=== PATIENT | female | born 1955 | race African-American/Black ===

== ENCOUNTER 2021-11-20 07:00 | Inpatient (IN) | payer MEDICARE ==
[~2021-11-20] VITALS: Ht 157.5 cm; Wt 89.3 kg
[2021-11-20 07:00] VITALS: BP 142/63
--- NOTE | 2021-11-20 07:08 | NUR ---
ADMISSION PT ARRIVES VIA EMS FROM [facility] ER. SETTLED INTO BED, ON 2L/NC. CARDIZEM GTT RUNNING ON ARRIVAL. VS ASSESSED, TELE APPLIED.
[2021-11-20] MEDS ORDERED: VENTOLIN HFA18 GM INH (09:26)
[2021-11-20] MEDS ORDERED: HYDR-2769 PO (09:26)
[2021-11-20] MEDS ORDERED: TIZA-75 PO (09:26)
[2021-11-20] MEDS ORDERED: METO25TA4 PO (09:26)
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
[2021-11-20] MEDS ORDERED: oxyCODONE/APAP 5/325 1 TAB TABLET PO PRN (10:00)
[2021-11-20] MEDS: tiZANidine 4 MG TABLET. PO SCH ×3 (10:31→20:51)
[2021-11-20] MEDS: METOPROLOL TART IMMED RELEASE 25 MG TABLET. PO SCH ×2 (10:31→20:52)
--- NOTE | 2021-11-20 10:33 | NUR ---
MEDICATION CARDIZEM GTT STOPPED AT THIS TIME WITH ADMINISTRATION OF PO CARDIZEM. DID NOT APPEAR ON IV SPREADSHEET IT ARRIVED ON PT FROM [facility] ER.
[2021-11-20] MEDS: oxyCODONE/APAP 10/325 1 TAB TABLET PO PRN ×2 (10:39→19:57)
[2021-11-20 10:42] LABS: HEMATOCRIT 43.6 % (36.0-47.0); HEMOGLOBIN 13.7 g/dL (12.0-15.5); RED BLOOD COUNT 5.2 x10^6/uL (3.50-5.40); RED CELL DISTRIBUTION WIDTH 15.7 % (11.5-14.5); WHITE BLOOD COUNT 8.6 x10^3/uL (4.0-11.0)
[2021-11-20 11:00] VITALS: BP 134/67
[2021-11-20 11:12] LABS: ALBUMIN 3.5 g/dL (3.4-5.0); GFR 67.5; MAGNESIUM 1.8 mg/dL (1.8-2.4); POTASSIUM 4.7 mmol/L (3.5-5.1); TOTAL BILIRUBIN 0.4 mg/dL (0.2-1.0)
--- NOTE | 2021-11-20 11:47 | RAD ---
EXAMINATION: XR CHEST 1V CLINICAL HISTORY: CHF. TECHNIQUE: XR CHEST 1V COMPARISON: 11/20/2021 4:49 AM FINDINGS/ IMPRESSION: No definitive evidence of acute cardiopulmonary abnormality or significant interval change when accou nting for differences in patient positioning and imaging technique. Redemonstration of cardiomegaly and nonspecific interstitial prominence. Electronically signed by: Lester Huang DO (11/20/2021 11:44 AM) [id number]
--- NOTE | 2021-11-20 12:01 | EKG ---
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
[2021-11-20] MEDS ORDERED: IV NORMAL SALINE 1000ML BAG 1,000 ML IV ONE (12:15)
[2021-11-20] MEDS ORDERED: ASPIRIN ENTERIC COATED 325 MG TABLET.DR. PO ONE (12:15)
--- NOTE | 2021-11-20 12:23 | PDOC2 ---
RADHA HOBSON PRINT SHOP ASSISTANT 11/20/21 1223: CARDIAC CONSULT DATE OF CONSULT Date of Consult DATE: 11/20/21 TIME: 11:37 REASON FOR CONSULT Reason for Consult: SVT REFERRING PHYSICIAN Referring Physician: Norberto SOURCE Source: Chart review, Patient HISTORY OF PRESENT ILLNESS HISTORY OF PRESENT ILLNESS This is a pleasant 66 yo female admitted for complains of chest pain. Reports that she has been having BERNABE and chest tightness intermittently in the last 1-2 weeks. No nausea or vomiting. No frequent dizziness. No fever or chills. No prior exposure to covid-19. Verbalized compliance with her medications. She sees Leann Rodriguez APRN cardiology at [facility]. she was initially admitted at [facility] and and then noted with AFIB RVR and she has converted to SR/SB. No hx of CAD, VTE. No hx fo BRENT. She has not had stress test since her 2018 septal myomectomy. No leg swelling, PND. or orthopnea. PAST MEDICAL HISTORY Cardiovascular: AFIB (post heart surgery in 2018), HTN, Hyperlipidemia Pulmonary: COPD CENTRAL NERVOUS SYSTEM: Other (No pertinent history) GI: No pertinent hx Heme/Onc: No pertinent hx Hepatobiliary: No pertinent hx Psych: No pertinent hx Musculoskeletal: low back pain, Osteoarthritis Rheumatologic: No pertinent hx Infectious disease: No pertinent hx ENT: No pertinent hx Renal/: No pertinent hx Endocrine: No pertinent hx Dermatology: No pertinent hx PAST SURGICAL HISTORY Past Surgical History: CABG (septal myomectomy in 06/2018) FAMILY HISTORY Family History: Hypertension SOCIAL HISTORY Smoke: No ALCOHOL: none Drugs: None Lives: Alone CURRENT MEDICATIONS CURRENT MEDICATIONS Current Medications Medications (Trade) Dose Ordered Sig/Leonie Route PRN Reason Start Time Stop Time Status Last Admin Dose Admin Metoprolol Tartrate (Lopressor) 25 mg BID PO 11/20/21 10:00 11/20/21 10:31 Tizanidine HCl (Zanaflex) 2 mg TID PO 11/20/21 10:00 11/20/21 10:31 Oxycodone/ Acetaminophen (Percocet 10/325) 1 tab PRN Q4HRS PRN PO SEVERE PAIN 11/20/21 10:00 11/20/21 10:39 Diltiazem HCl (Cardizem 24hr Cd) 180 mg DAILY PO 11/20/21 10:00 11/20/21 10:31 ALLERGIES ALLERGIES: Coded Allergies: cyclobenzaprine (Verified Allergy, Intermediate, 11/20/21) ROS Review of System 14 point ROS evaluated with pertinent positives noted per HPI PHYSICAL EXAM General: Alert, Oriented X3, Cooperative, No acute distress HEENT: Atraumatic, Mucous membr. moist/pink Heart: Regular rate (SR/SB), Other (distant heart sounds) Abdomen: Soft, No tenderness Extremities: No cyanosis, No edema Skin: No breakdown, No significant lesion Neuro: Normal speech, Sensation intact Psych/Mental Status: Mental status NL, Mood NL MUSCULOSKELETAL: Osteoarthritic changes both hands VITALS/I&O VITALS/I&O: Vital Signs Date Time Temp Pulse Resp B/P (MAP) Pulse Ox O2 Delivery O2 Flow Rate FiO2 11/20/21 11:09 16 Room Air 11/20/21 10:31 66 142/63 11/20/21 07:00 98.0 98.0 LABS Lab: Laboratory Tests Test 11/20/21 10:21 White Blood Count 8.6 x10^3/uL (4.0-11.0) Red Blood Count 5.20 x10^6/uL (3.50-5.40) Hemoglobin 13.7 g/dL (12.0-15.5) Hematocrit 43.6 % (36.0-47.0) Mean Corpuscular Volume 84 fL (79-100) Mean Corpuscular Hemoglobin 26 pg (25-35) Mean Corpuscular Hemoglobin Concent 31 g/dL (31-37) Red Cell Distribution Width 15.7 % (11.5-14.5) H Platelet Count 192 x10^3/uL (140-400) Sodium Level 140 mmol/L (136-145) Potassium Level 4.7 mmol/L (3.5-5.1) Chloride Level 108 mmol/L (98-107) H Carbon Dioxide Level 24 mmol/L (21-32) Anion Gap 8 (6-14) Blood Urea Nitrogen 13 mg/dL (7-20) Creatinine 1.0 mg/dL (0.6-1.0) Estimated GFR (Cockcroft-Gault) 67.5 BUN/Creatinine Ratio 13 (6-20) Glucose Level 101 mg/dL (70-99) H Calcium Level 9.0 mg/dL (8.5-10.1) Magnesium Level 1.8 mg/dL (1.8-2.4) Total Bilirubin 0.4 mg/dL (0.2-1.0) Aspartate Amino Transferase (AST) 45 U/L (15-37) H Alanine Aminotransferase (ALT) 24 U/L (14-59) Alkaline Phosphatase 82 U/L (46-116) Troponin I High Sensitivity 6915 ng/L (4-50) H IL-Ahg-O-Type Natriuretic Peptide 34382 pg/mL (0-124) H Total Protein 7.0 g/dL (6.4-8.2) Albumin 3.5 g/dL (3.4-5.0) Albumin/Globulin Ratio 1.0 (1.0-1.7) Laboratory Tests 11/20/21 10:21 Laboratory Tests 11/20/21 10:21 ASSESSMENT/PLAN ASSESSMENT/PLAN 1. NSTEMI 2. Hx of HOCM with septal myomectomy: no bypass 3. HTN: controlled 4. HLP 5. Obesity 6,. AFIB RVR: converted to SR. Presently SB lowest mid40s no pauses 7. Acute diastolic CHF: appears compensated Recommendations 1. LHC, risks and benefits discussed and agreeable to proceed 2. FLP, TTE 3. Already received cardizem CD 180 mg and metoprolol. Monitor rhythm for significant bradycardia 4. Secondary prevention measures per LHC result. ASA. NOAC consideration after LHC 5. MCOT 6. Lasix PRN JOYCE WYMAN MD 11/20/21 5877: CARDIAC CONSULT ASSESSMENT/PLAN ASSESSMENT/PLAN Patient seen and examined. Agree with PCU RN's assessment and plan. Agree with cardiac catheterization today to further evaluate patient's non-STEMI HOCM s/p septal myectomy, clinically stable Atrial fibrillation with RVR, presently back in sinus pericardia Start amiodarone for antiarrhythmic therapy and Eliquis for stroke prophylaxis Acute diastolic heart failure better compensated Thank you for your consultation RADHA HOBSON APRN Nov 20, 2021 12:23 JOYCE WYMAN MD Nov 20, 2021 16:47
[2021-11-20 12:52] LABS: CHOLESTEROL/HDL RATIO 5.3
[2021-11-20] MEDS ORDERED: IODIXANOL 320 MG/ML 100 ML VIAL. ONE (12:55)
[2021-11-20] MEDS ORDERED: LIDOCAINE 1% PF 2 ML VIAL. ONE (12:55)
[2021-11-20] MEDS ORDERED: fentaNYL PF VIAL 100 MCG/2 ML VIAL ONE (13:06)
[2021-11-20] MEDS ORDERED: MIDAZOLAM HCL/PF 2 MG/2 ML VIAL. ONE (13:06)
[2021-11-20] MEDS ORDERED: VERAPAMIL 5 MG/2 ML VIAL. ONE (13:06)
[2021-11-20] MEDS ORDERED: NITROGLYCERIN 200 MCG/2 ML SYRINGE FOR CATH/VASC LAB. ONE (13:06)
[2021-11-20] MEDS ORDERED: HEPARIN for IV BOLUS 10,000 UNIT/10 ML VIAL. ONE (13:06)
[2021-11-20] MEDS ORDERED: NITROGLYCERIN 200 MCG/2 ML SYRINGE FOR CATH/VASC LAB. IART ONE (13:45)
[2021-11-20] MEDS ORDERED: LIDOCAINE 1% PF 2 ML VIAL. INJ ONE (13:45)
[2021-11-20] MEDS ORDERED: fentaNYL PF VIAL 100 MCG/2 ML VIAL IV ONE (13:45)
[2021-11-20] MEDS ORDERED: VERAPAMIL 5 MG/2 ML VIAL. IART ONE (13:45)
[2021-11-20] MEDS ORDERED: HEPARIN for IV BOLUS 10,000 UNIT/10 ML VIAL. IART ONE (13:45)
[2021-11-20] MEDS ORDERED: MIDAZOLAM HCL/PF 2 MG/2 ML VIAL. IV ONE (13:45)
[2021-11-20] MEDS ORDERED: IODIXANOL 320 MG/ML 100 ML VIAL. IART ONE (13:45)
[2021-11-20 13:48] VITALS: BP 138/81
[2021-11-20] MEDS ORDERED: CONTRAST GIVEN. MC PRN (14:00)
--- NOTE | 2021-11-20 14:22 | PDOC ---
MODERATE SEDATION ASSESSMENT RISKS/ALTERNATIVES Risks/Alternatives Risks and alternatives of this type of sedation and procedure discussed with: RISK/ALTERNATIVES: Patient H & P ON CHART H & P H & P on chart and reviewed for co-morbid conditions and appropriate labs. H&P ON CHART: Yes STATUS PREG STATUS ASSESSED: N/A MEDS/ALLERGIES REVIEWED Meds/Allergies Reviewed Medications and Allergies including time and route of recently administered narcotics and sedatives. MEDS/ALLERGIES REVIEWED: Yes ASA RATING ASA RATING: II AIRWAY ASSESSMENT Airway Assessment Airway patency, oral function limitations, presence of caps, crowns, dentures, partials, and ability to extend neck assessed. AIRWAY ASSESSMENT: Yes MALLAMPATI SCORE MALLAMPATI SCORE: II PRE-SEDATION ASSESSMENT PRE-SEDATION ASSESSMENT: Yes JOYCE WYMAN MD Nov 20, 2021 14:22
--- NOTE | 2021-11-20 14:27 | CARD ---
MR#: [id number] Date of Study: 11/20/2021 Ordering Physician: RADHA HOBSON, Referring Physician: RADHA HOBSON, Tech: RT Emily(R) APPROVED REPORT Technologist: Joana Daigle RT(R) Nurse: Bharati Kelly RN Procedure(s) performed: Left heart catheterization, selective coronary angiography and left ventricul ography via right transradial approach fluoro time: 3.4min dose: 57.3 gycm2 contrast: 91cc moderate sedation: 23min INDICATION The indication(s) include : non-STEMI . [facility] Clinical Frailty Scale [facility] Clinical Frailty Scale: Mildly Frail Heart Failure Heart Failure: No CASE TECHNIQUE IV conscious sedation was used throughout procedure with appropriate monitoring and was performed in the presence of a registered nurse who was an independent trained observer other than the physician p erforming the procedure. During this case, Fluoroscopy and low osmolar contrast were used for imaging . Specimen(s) Removed: No Estimated Blood loss: 15 cc's. PROCEDURE NARRATIVE After explaining the risks, benefits and alternative options, informed consent was obtained from juan david ent. Patient was brought to the cardiac Auto Crane Driver and right wrist was prepped and draped in the usual fashion after confirming a positive modified Skip's test. Arterial access was obtained in the righ t radial artery and a 6 Slovak sheath was inserted. 6 Slovak Aaron catheter was used to perform stu ective angiography of the left and right coronary arteries. 6 Slovak pigtail catheter was used to pe rform left ventriculography. Patient tolerated the procedure well. Hemostasis was achieved using TR band. There were no immediate complications. The following findings were noted. FINDINGS 1. Hemodynamics: Left ventricular end-diastolic pressure of 25 mmHg. No pullback gradient across th e aortic valve. 2. Left ventriculography: Hyperdynamic left ventricle systolic function with ejection fraction estim ated at greater than 75%. No significant mitral regurgitation seen. 3. Coronary angiography: a. The left main coronary artery arose from the left sinus of Valsalva, gave rise to the left anteri or descending and left circumflex arteries and did not show any significant stenosis. b. The left anterior descending artery did not show any significant stenosis. c. The left circumflex artery did not show any significant stenosis. d. The right coronary artery was a large and dominant vessel arising from the right sinus of Valsalv a that did not show any significant stenosis. Conclusion 1. No significant coronary artery disease 2. Hyperdynamic left ventricle systolic function with ejection fraction estimated at greater than 75 % Recommendations Patient's non-STEMI is most probably type II/demand ischemia. Recommend medical therapy. Signed by : Les Gupta, Electronically Approved : 11/20/2021 14:26:44
[2021-11-20] MEDS ORDERED: IV 1/2 NORMAL SALINE 1,000 ML IV SCH (14:30)
[2021-11-20 15:00] VITALS: BP 130/71
[2021-11-20] MEDS ORDERED: NON FORMULARY ITEM (Albuterol Sulfate (Ventolin Hfa Inhaler) 2 PUFF) INH SCH (16:15)
[2021-11-20] MEDS: ALBUTEROL SULFATE 2.5 MG/3 ML NEBU. NEB PRN (16:27)
[2021-11-20] MEDS: AMIODARONE HCL 200 MG TABLET. PO SCH ×2 (17:38→20:51)
[2021-11-20 19:24] VITALS: BP 144/78
--- NOTE | 2021-11-20 19:45 | NUR ---
Pt in bed assessment completed vss poc explained pt c/o pain to lower back will medicate pt will resume care and continue to monitor pt.Call light in reach
[2021-11-20] MEDS ORDERED: ATORVASTATIN CALCIUM 20 MG TABLET PO SCH (21:00)
[2021-11-20 22:55] VITALS: BP 134/75
[2021-11-21 02:43] VITALS: BP 129/75
[2021-11-21 07:00] VITALS: BP 144/63
[2021-11-21] MEDS ORDERED: ASPIRIN ENTERIC COATED 81 MG TABLET.DR. PO SCH (08:00)
[2021-11-21] MEDS: tiZANidine 4 MG TABLET. PO SCH (08:09)
[2021-11-21] MEDS: METOPROLOL TART IMMED RELEASE 25 MG TABLET. PO SCH (08:09)
[2021-11-21] MEDS: AMIODARONE HCL 200 MG TABLET. PO SCH (08:09)
[2021-11-21] MEDS ORDERED: APIXABAN 5 MG TABLET. PO SCH (09:00)
[2021-11-21] MEDS: oxyCODONE/APAP 10/325 1 TAB TABLET PO PRN (10:18)
[2021-11-21] MEDS ORDERED: PERFLUTREN PROTEIN-A MICROSPHR 0.22 MG/ML 3 ML VIAL. IV ONE ×2 (10:45→10:52)
[2021-11-21 10:58] VITALS: BP 115/56
--- NOTE | 2021-11-21 12:00 | PDOC ---
JOCERADHA FIELD ARTILLERY BASIC 11/21/21 1200: CARDIO Progress Notes Date and Time Date of Service 11/21/2021 Time of Evaluation 1130 Subjective Subjective: No Chest Pain, No shortness of breath, No Palpitations Vitals Vitals Vital Signs Date Time Temp Pulse Resp B/P (MAP) Pulse Ox O2 Delivery O2 Flow Rate FiO2 11/21/21 10:58 97.4 49 19 115/56 (75) 97 Room Air 97.4 11/21/21 08:15 2.0 Weight Weight [ ] Input and Output Intake and Output Intake and Output 11/21/21 07:00 Intake Total 520 ml Balance 520 ml Intake Oral 520 ml # Voids 2 Physical Exam HEENT: Neck Supple W Full Motion Chest: Symmetric LUNGS: Other (diffuse wheeze) Heart: S1S2, RRR (SR) Abdomen: Soft N/T Extremities: No Calf Tenderness Neurology: alert, oriented, follow commands Assessment Assessment 1. NSTEMI: LHC revealed no significant CAD. elevation likely due to RVR 2. Hx of HOCM with septal myomectomy: no bypass. EF 75% per LHC 3. HTN: controlled 4. HLP 5. Obesity 6,.AFIB RVR: converted to SR. Maintaining SR/SB lowest mid40s no pauses 7. Acute diastolic CHF: appears compensated 8. Asthma: presently with diffuse wheeze. per PCP Recommendations 1. eliquis fo stroke prevention. Continue amiodarone 200 mg bid for 2 weeks then daiily 2. If TTE could not be done as an intpt then this can be [facility] as an outpt via [facility]. Follow up with Malina Rodriguez at cardiology 3. Continue toprol 4. MCOT Justicifation of Admission Dx: Justifications for Admission: Justification of Admission Dx: Yes JOYCE WYMAN MD 11/21/212101: CARDIO Progress Notes Assessment Assessment Patient seen and examined. Agree with APARTMENT MANAGER's assessment and plan. NSTEMI prob type 2/demand ischemia - cardiac cath did not show any significant CAD HOCM s/p septal myectomy, clinically stable Atrial fibrillation with RVR, presently back in sinus pericardia Continue amiodarone for antiarrhythmic therapy and Eliquis for stroke prophylaxis 2D echo showed hyperdynamic LVF with EF > 75% and diastolic dysfunction Acute diastolic heart failure better compensated Continue current medical regimen RADHA HOBSON APRN Nov 21, 2021 12:00 JOYCE WYMAN MD Nov 21, 2021 21:02
[2021-11-21] MEDS: ALBUTEROL SULFATE 2.5 MG/3 ML NEBU. NEB PRN (12:10)
[2021-11-21] MEDS ORDERED: ATOR20TA58 PO (12:15)
[2021-11-21] MEDS ORDERED: APIX5TAB PO (12:15)
[2021-11-21] MEDS ORDERED: AMIO200T53 PO ×2 (12:17)
--- NOTE | 2021-11-21 12:22 | PDOC3 ---
Discharge Summary Visit Information Date of Admission: Nov 20, 2021 Date of Discharge: Nov 21, 2021 Final Diagnosis 1. NSTEMI type 2 demand, [facility] revealed no significant CAD 2. Hx of HOCM with septal myomectomy: no bypass. EF 75% per [facility], chronic diastolic CHF 3. hypertension and hyperlidids 4. acute on chronic diastolic CHF, .AFIB RVR: converted to SR. 5. Asthma: presently with diffuse wheeze. per PCP Brief Hospital Course Allergies Allergies Coded Allergies Type Severity Reaction Last Updated Verified cyclobenzaprine Allergy Intermediate 11/20/21 Yes Vital Signs Vital Signs Date Time Temp Pulse Resp B/P (MAP) Pulse Ox O2 Delivery O2 Flow Rate FiO2 11/21/21 12:10 96 Room Air 11/21/21 10:58 97.4 49 19 115/56 (75) 97.4 11/21/21 08:15 2.0 Lab Results Laboratory Tests Test 11/20/21 10:21 White Blood Count 8.6 x10^3/uL (4.0-11.0) Red Blood Count 5.20 x10^6/uL (3.50-5.40) Hemoglobin 13.7 g/dL (12.0-15.5) Hematocrit 43.6 % (36.0-47.0) Mean Corpuscular Volume 84 fL (79-100) Mean Corpuscular Hemoglobin 26 pg (25-35) Mean Corpuscular Hemoglobin Concent 31 g/dL (31-37) Red Cell Distribution Width 15.7 % (11.5-14.5) Platelet Count 192 x10^3/uL (140-400) Sodium Level 140 mmol/L (136-145) Potassium Level 4.7 mmol/L (3.5-5.1) Chloride Level 108 mmol/L (98-107) Carbon Dioxide Level 24 mmol/L (21-32) Anion Gap 8 (6-14) Blood Urea Nitrogen 13 mg/dL (7-20) Creatinine 1.0 mg/dL (0.6-1.0) Estimated GFR (Cockcroft-Gault) 67.5 BUN/Creatinine Ratio 13 (6-20) Glucose Level 101 mg/dL (70-99) Calcium Level 9.0 mg/dL (8.5-10.1) Magnesium Level 1.8 mg/dL (1.8-2.4) Total Bilirubin 0.4 mg/dL (0.2-1.0) Aspartate Amino Transf (AST/SGOT) 45 U/L (15-37) Alanine Aminotransferase (ALT/SGPT) 24 U/L (14-59) Alkaline Phosphatase 82 U/L (46-116) Troponin I High Sensitivity 6915 ng/L (4-50) ZT-Hcg-G-Type Natriuretic Peptide 19512 pg/mL (0-124) Total Protein 7.0 g/dL (6.4-8.2) Albumin 3.5 g/dL (3.4-5.0) Albumin/Globulin Ratio 1.0 (1.0-1.7) Triglycerides Level 126 mg/dL (0-150) Cholesterol Level 248 mg/dL (0-200) LDL Cholesterol, Calculated 176 mg/dL (0-100) VLDL Cholesterol, Calculated 25 mg/dL (0-40) Non-HDL Cholesterol Calculated 201 mg/dL (0-129) HDL Cholesterol 47 mg/dL (40-60) Cholesterol/HDL Ratio 5.3 Thyroid Stimulating Hormone (TSH) 1.146 uIU/mL (0.358-3.74) Brief Hospital Course Ms. Moore is a 66 old female, transfer from [facility], SVT rhythm, went to ER for acute chest pain. NOted BERNABE and chest tightness intermittently 2 weeks. She sees Leann Rodriguez APRN cardiology at [facility]. Heree, troponin bump, noted with AFIB RVR and she has converted to SR/SB. No hx of CAD HX cardiac surg, 2018 septal myomectomy. Assessment Assessment CARDIAC CATH 11/20/21 Conclusion 1. No significant coronary artery disease 2. Hyperdynamic left ventricle systolic function with ejection fraction estimated at greater than 75% Recommendations Patient's non-STEMI is most probably type II/demand ischemia. Recommend medical therapy. Discharge Information Condition at Discharge: Improved Follow Up: Weeks Disposition/Orders: D/C to Home Scheduled Albuterol Sulfate (Ventolin Hfa Inhaler) 18 Gm Hfa.aer.ad, 2 PUFF INH PRN Q4HRS for ASTHMA, Ref 0 (Reported) Entered as Reported by: THEO CHAMBERLAIN on 11/20/2172 Last Taken: Unknown Dose on Unknown Date & Time Last Action: Converted on 11/20/21 1610 by THEO CHAMBERLAIN Amiodarone Hcl (Amiodarone Hcl) 200 Mg Tablet, 200 MG PO BID for cardiac rhythm, #30 two weeks BID then start daily Prescribed by: ADEEL THURMAN on 11/21/21 1217 Amiodarone Hcl (Amiodarone Hcl) 200 Mg Tablet, 1 TAB PO DAILY for cardiac, #30 Ref 1 Prescribed by: ADEEL THURMAN on 11/21/21 1217 Apixaban (Eliquis) 5 Mg Tablet, 5 MG PO BID for atrial fib, #60 Ref 1 Prescribed by: ADEEL THURMAN on 11/21/21 1215 Atorvastatin Calcium (Atorvastatin Calcium) 20 Mg Tablet, 20 MG PO QHS for cardiac, #30 Prescribed by: ADEEL THURMAN on 11/21/21 1215 Metoprolol Tartrate (Metoprolol Tartrate) 25 Mg Tablet, 1 TAB PO BID for HTN, #180 Ref 1 (Reported) Entered as Reported by: THEO CHAMBERLAIN on 11/20/21925 Last Taken: Unknown Dose on 11/19/211999 Last Action: Continued on 11/20/21947 by ADEEL THURMAN Tizanidine Hcl (Tizanidine Hcl) 4 Mg Tablet, 2 MG PO TID for CHRONIC BACK PAIN, (Reported) Entered as Reported by: THEO CHAMBERLAIN on 11/20/21925 Last Taken: Unknown Dose on 11/19/211999 Last Action: Continued on 11/20/21947 by ADEEL THURMAN Discontinued Medications Hydrocodone Bit/Acetaminophen (Hydrocodone-Apap 10-325 ) 1 Tab Tablet, 1 TAB PO PRN Q6HRS PRN for PAIN, Ref 0 (Reported) Entered as Reported by: THEO CHAMBERLAIN on 11/20/21925 Last Taken: Unknown Dose on Unknown Date & Time Last Action: New Order on 11/20/21925 by THEO CHAMBERLAIN Patient Instructions Patient Instructions vickie shay stroke prevention. Continue amiodarone 200 mg bid for 2 weeks then daiily Follow up with Malina Rodriguez at cardiology Justicifation of Admission Dx: Justifications for Admission: Justification of Admission Dx: Yes ADEEL THURMAN MD Nov 21, 2021 12:22
[2021-11-21] MEDS ORDERED: ALBU0.63 NEB (13:28)
--- NOTE | 2021-11-21 14:51 | NUR ---
SS following for discharge planning. SS reviewed pt chart and discussed with pt RN. Pt is from home and is currently on room air. Cardiology following. Pt had heart cath on 11/20/2021. Discharge order on the chart for home with self care.
--- NOTE | 2021-11-21 15:01 | NUR ---
DISCHARGE PIV'S ET TELE DISCONTINUED. MEDICATIONS REVIEWED WITH PATIENT, FOLLOW UP INFORMATION WITH PERSONAL ALIGNMENT SPECIALIST DISCUSSED WELL. ALL QUESTIONS ANSWERED TO PATIENT SATISFACTION. AMBULATED TO MAIN ENTRANCE WITH DAUGHTER FOR DC HOME IN PRIVATE VEHICLE.
--- NOTE | 2021-11-21 16:34 | CARD ---
MR#: [id number] Date of Study: 11/21/2021 Ordering Physician: RADHA HOBSON, Referring Physician: RADHA HOBSON Tech: Ron Langford [facility] APPROVED REPORT EXAM: Two-dimensional and M-mode echocardiogram with Doppler and color Doppler. 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 RISK FACTORS Hypertension Obesity Hyperlipidemia 2D DIMENSIONS Left Atrium(2D)5.5 (1.6-4.0cm)IVSd2.2 (0.7-1.1cm) Aortic Root(2D)3.1 (2.0-3.7cm)LVDd3.9 (3.9-5.9cm) LVOT Diameter1.9 (1.8-2.4cm)PWd2.2 (0.7-1.1cm) LVDs1.8 (2.5-4.0cm)FS (%) 54.4 % SV55.9 mlLVEF(%)85.8 (>50%) Aortic Valve AoV Peak Jorge.182.1cm/sAoV VTI30.0cm AO Peak GR.13.3mmHgLVOT Peak Jorge.123.9cm/s LVOT VTI 21.14cmAO Mean GR.7mmHg TAZ (VMAX)1.90fu3MVH (VTI)2.06cm2 Mitral Valve MV E Kxnhhtxa470.3cm/sMV DECEL [id number] MV A Bcsnawci45.7cm/sMV CUF89lh E/A Ratio2.0MVA (PHT)2.23cm2 TDI E/Medial E'45.3 Pulmonary Valve PV Peak Ucrmkmgs65.7cm/sPV Peak Grad.3mmHg Tricuspid Valve TR P. Koblctrx272zm/sTR Peak Gr.31mmHg Pulmonary Vein S1 Sddgmhny87.4cm/sD2 Xsidngeo02.1cm/s LEFT VENTRICLE The left ventricle is normal size. There is moderate to severe concentric left ventricular hypertroph y. Hyperdynamic left ventricular systolic function. The ejection fraction is greater than 75%. There is normal LV segmental wall motion. Transmitral Doppler flow pattern is Grade III-reversible restrict hamzah diastolic dysfunction. No left ventricle thrombus noted on this study. There is no ventricular se ptal defect visualized. There is no left ventricular aneurysm. There is no mass noted in the left ana tricle. RIGHT VENTRICLE The right ventricle is normal size. There is normal right ventricular wall thickness. The right ventr icular systolic function is normal. ATRIA The left atrium is moderately dilated. The right atrium size is normal. The interatrial septum is int act with no evidence for an atrial septal defect or patent foramen ovale as noted on 2-D or Doppler i maging. AORTIC VALVE The aortic valve is calcified but opens well. Doppler and Color Flow revealed no significant aortic r egurgitation. There is no significant aortic valvular stenosis. There is no aortic valvular vegetatio n. MITRAL VALVE The mitral valve is calcified and displays mild Mitral annular calcification is moderate.decreased op ening. There is no evidence of mitral valve prolapse. There is no mitral valve stenosis. Doppler and Color-flow revealed trace mitral regurgitation. TRICUSPID VALVE The tricuspid valve is normal in structure and function. Doppler and Color Flow revealed no tricuspid valve regurgitation noted. There is no tricuspid valve prolapse or vegetation. There is no tricuspid valve stenosis. PULMONIC VALVE The pulmonary valve is normal in structure and function. Doppler and Color Flow revealed no pulmonic valvular regurgitation. There is no pulmonic valvular stenosis. GREAT VESSELS The aortic root is normal in size. The ascending aorta is normal in size. The pulmonary artery is nor mal. The IVC is normal in size and collapses >50% with inspiration. PERICARDIAL EFFUSION There is no pleural effusion. There is no evidence of significant pericardial effusion. Critical Notification Critical Value: No <Conclusion> Hyperdynamic left ventricular systolic function. The ejection fraction is greater than 75%. There is normal LV segmental wall motion. Transmitral Doppler flow pattern is Grade III-reversible restrictive diastolic dysfunction. There is no evidence of significant pericardial effusion. Signed by : Les Gupta, Electronically Approved : 11/21/2021 16:33:42
== END 2021-11-21 14:45 | disposition home or self-care (01) | DRG 280 ==
LOC: 6 SOUTH 07:00
PROVIDERS: ADMIT Internal Medicine; ATTEND Internal Medicine
PROC: B2111ZZ Fluoroscopy of Multiple Coronary Arteries using Low Osmolar Contrast (ICD-10-PCS; principal; 2021-11-20)
PROC: B2151ZZ Fluoroscopy of Left Heart using Low Osmolar Contrast (ICD-10-PCS; 2021-11-20)
PROC: 4A023N7 Measurement of Cardiac Sampling and Pressure, Left Heart, Percutaneous Approach (ICD-10-PCS; 2021-11-20)
DX: I11.0 Hypertensive heart disease with heart failure (principal); I21.A1 Myocardial infarction type 2; I50.33 Acute on chronic diastolic (congestive) heart failure; I47.1 Supraventricular tachycardia; E66.9 Obesity, unspecified; Z68.36 Body mass index [BMI] 36.0-36.9, adult; E78.5 Hyperlipidemia, unspecified; G89.29 Other chronic pain; I42.1 Obstructive hypertrophic cardiomyopathy; I48.91 Unspecified atrial fibrillation; J44.9 Chronic obstructive pulmonary disease, unspecified; M19.90 Unspecified osteoarthritis, unspecified site; M54.50 Low back pain, unspecified; Z88.8 Allergy status to other drugs, medicaments and biological substances; Z82.49 Family history of ischemic heart disease and other diseases of the circulatory system; Z95.1 Presence of aortocoronary bypass graft
CPT/HCPCS: 36415; 71045; 80053; 80061; 83735; 83880; 84443; 84484; 85027; 93005; 93306; 93458; 94640; 99152; 99153; C1894; J1644; J2250; J3010; J3490; J7030; Q9956; Q9967; C8929; G0378; J7613